=== PATIENT | female | born 1990 | race Caucasian/White ===

== ENCOUNTER 2020-04-21 12:08 | Emergency (ER) | payer BC ==
[~2020-04-21] VITALS: Ht 165.1 cm; Wt 61.2 kg
[2020-04-21 12:10] VITALS: BP_SYST 108
--- NOTE | 2020-04-21 12:10 | NUR ---
TRIAGED AND IN TRIAGE TENT UNTIL AVAILABLE ER BED.
--- NOTE | 2020-04-21 12:52 | NUR ---
DR CASTANON TO OUTSIDE TENT FOR EVALUATION
[2020-04-21 13:43] LABS: BASOPHILS # (AUTO) 0.1 K/uL (0.0-0.2); BASOPHILS % (AUTO) 1.3 % (0.0-2.0); EOSINOPHILS # (AUTO) 0.1 K/uL (0.0-0.4); EOSINOPHILS % (AUTO) 1.9 % (0.0-4.0); HEMATOCRIT 38.3 % (36-48); HEMOGLOBIN 12.9 g/dL (12.0-16.0); LYMPHOCYTES # (AUTO) 2.2 K/uL (1.0-5.5); LYMPHOCYTES % (AUTO) 39.5 % (20.5-51.5); MEAN CORPUSCULAR HEMOGLOBIN 32 pg (27-31); MEAN CORPUSCULAR HGB CONC 34 % (32-36); MEAN CORPUSCULAR VOLUME 93 fL (79.0-98.0); MONOCYTES # (AUTO) 0.5 K/uL (0.0-1.0); MONOCYTES % (AUTO) 9.4 % (1.7-9.3); NEUTROPHILS # (AUTO) 2.6 K/uL (1.8-7.7); NEUTROPHILS % (AUTO) 47.9 % (40.0-70.0); PLATELET COUNT (AUTO) 251 K/uL (130-430); RED CELL DISTRIBUTION WIDTH 13.2 % (9.0-15.0); WHITE BLOOD COUNT (AUTO) 5.5 K/uL (4.8-10.8)
[2020-04-21 14:25] LABS: PROTHROMBIN TIME 9.9 SECS (9.5-12.5)
[2020-04-21 16:00] VITALS: BP_SYST 108
--- NOTE | 2020-04-21 16:00 | NUR ---
Patient given written and verbal discharge instructions and verbalizes understanding. ER MD CASTANON discussed with patient the results and treatment provided. Patient in stable condition. ID arm band removed. Patient educated on pain management and to follow up with PMD. Pain Scale 0/10. Opportunity for questions provided and answered.
== END 2020-04-21 16:00 | disposition home or self-care (01) ==
LOC: SED 12:08
DX: O03.9 Complete or unspecified spontaneous abortion without complication (principal); Z3A.01 Less than 8 weeks gestation of pregnancy
CPT/HCPCS: 36415; 76801; 76817; 81002; 81025; 84702-TC; 85025; 85610-TC; 85730-TC; 86900; 86901; 99284